=== PATIENT | male | born 1990 | race Two or more races ===

== ENCOUNTER 2021-02-28 10:58 | Emergency (ER) | payer OTHER ==
--- NOTE | 2021-02-28 12:14 | ER ---
Nurse's Notes [facility] Name: Jose G Robins Age: 31 yrs Sex: Male : 1990 Arrival Date: 02/28/2021 Time: 11:01 Bed 28 Private MD: Diagnosis: Puncture wound with foreign body of left middle finger without damage to nail, initial encounter-[place] Presentation: 02/28 11:55 Chief complaint: Patient states: About an hour ago pt got fish hook stuck in Left vg1 middle finger. No bleeding noted. Coronavirus screen: Vaccine status: Patient reports receiving the 2nd dose of the covid vaccine. Ebola Screen: Patient negative for fever greater than or equal to 101.5 degrees Fahrenheit, and additional compatible Ebola Virus Disease symptoms. Initial Sepsis Screen: Does the patient meet any 2 criteria? No. Patient's initial sepsis screen is negative. Does the patient have a suspected source of infection? No. Patient's initial sepsis screen is negative. Risk Assessment: Do you want to hurt yourself or someone else? Patient reports no desire to harm self or others. Onset of symptoms was February 28, 2021. 11:55 Method Of Arrival: Ambulatory vg1 11:55 Acuity: MELANIE 4 vg1 Triage Assessment: 11:56 General: Appears in no apparent distress. comfortable, Behavior is calm, cooperative. vg1 Pain: Complains of pain in palmar aspect of distal phalanx of left middle finger Pain currently is 3 out of 10 on a pain scale. Historical: - Allergies: 11:56 No Known Allergies; vg1 - Home Meds: 11:56 None [Active]; vg1 - PMHx: 11:56 None; vg1 - Immunization history:: Adult Immunizations up to date, Client reports receiving the 2nd dose of the Covid vaccine. - Social history:: Smoking status: Patient denies any tobacco usage or history of. - Family history:: not pertinent. - Hospitalizations: : No recent hospitalization is reported. Screenin:57 Abuse screen: Denies threats or abuse. Nutritional screening: No deficits noted. vg1 Tuberculosis screening: No symptoms or risk factors identified. Fall Risk No fall in past 12 months (0 pts). No secondary diagnosis (0 pts). No IV (0 pts). Ambulatory Aid- None/Bed Rest/Nurse Assist (0 pts). Gait- Normal/Bed Rest/Wheelchair (0 pts) Mental Status- Oriented to own ability (0 pts). Total Kennedy Fall Scale indicates No Risk (0-24 pts). Assessment: 12:23 General: Appears in no apparent distress. comfortable, Behavior is calm, cooperative, tr6 appropriate for age. Pain: Complains of pain in left middle finger. Neuro: No deficits noted. Cardiovascular: No deficits noted. Respiratory: No deficits noted. GI: No deficits noted. : No deficits noted. EENT: No deficits noted. Derm: Wound noted fish hook to left middle finger. Musculoskeletal: No deficits noted. Injury Description: Puncture sustained to fish hook to left middle finger. 12:25 Reassessment: fish hook removed by MD Bertrand. tr6 Vital Signs: 11:55 BP 121 / 61; Pulse 56; Resp 16; Pulse Ox 99% ; Weight 68.95 kg; Height 5 ft. 7 in. vg1 (170.18 cm); Pain 3/10; 11:58 Temp 98.2(O); tr6 12:23 BP 116 / 75; Pulse 57; Resp 18; Pulse Ox 100% on R/A; tr6 11:55 Body Mass Index 23.81 (68.95 kg, 170.18 cm) vg1 ED Course: 11:01 Patient arrived in ED. rg4 11:18 Ki Bertrand MD is Attending Physician. rn 11:49 Jyoti Mota RN is Primary Nurse. tr6 11:56 Triage completed. vg1 11:56 Arm band placed on. vg1 11:57 Patient has correct armband on for positive identification. Bed in low position. Call vg1 light in reach. Side rails up X 1. Adult w/ patient. 11:59 removal of fish hook. Patient did not have IV access during this emergency room visit. tr6 Administered Medications: No medications were administered Outcome: 12:13 Discharge ordered by . rn 12:25 Discharged to home ambulatory. tr6 12:25 Condition: good 12:25 Discharge instructions given to patient, Instructed on discharge instructions, follow up and referral plans. no drinking with medication, medication usage, safety practices, Demonstrated understanding of instructions, follow-up care, medications, wound care, Prescriptions given X 1. 12:25 Patient left the ED. tr6 Signatures: Ki Bertrand MD MD rn Garcia, Rubi rg4 Kamryn Fernandez, RN RN vg1 Jyoti Mota, RN RN tr6
--- NOTE | 2021-02-28 12:14 | EDPHYS ---
Physician Documentation [facility] Name: Jose G Robins Age: 31 yrs Sex: Male : 1990 Arrival Date: 02/28/2021 Time: 11:01 Bed 28 Private MD: ED Physician Ki Bertrand HPI: 02/28 12:09 This 31 yrs old Male presents to ER via Ambulatory with complaints of Fish Hook rn In Hand. 12:09 The patient or guardian reports the patient has a suspected foreign body, Finger. The rn reported likely foreign body is a fishhook. Onset: The symptoms/episode began/occurred just prior to arrival. Current symptoms: foreign body sensation. The patient has not experienced similar symptoms in the past. The patient has not recently seen a physician. Patient reports was fishing and fishhook got stuck in left middle finger prior to arrival. No other complaints. Historical: - Allergies: 11:56 No Known Allergies; vg1 - Home Meds: 11:56 None [Active]; vg1 - PMHx: 11:56 None; vg1 - Immunization history:: Adult Immunizations up to date, Client reports receiving the 2nd dose of the Covid vaccine. - Social history:: Smoking status: Patient denies any tobacco usage or history of. - Family history:: not pertinent. - Hospitalizations: : No recent hospitalization is reported. ROS: 12:09 Constitutional: Negative for fever MS/Extremity: Positive fishhook stuck in left middle rn finger tip Skin: No erythema Exam: 12:09 Constitutional: This is a well developed, well nourished patient who is awake, alert, rn and in no acute distress. MS/ Extremity: Pulses equal, no cyanosis. Neurovascular intact. Full, normal range of motion. Single fishhook stuck in the pad left third finger tip. No erythema. No active bleeding. Vital Signs: 11:55 BP 121 / 61; Pulse 56; Resp 16; Pulse Ox 99% ; Weight 68.95 kg; Height 5 ft. 7 in. vg1 (170.18 cm); Pain 3/10; 11:58 Temp 98.2(O); tr6 12:23 BP 116 / 75; Pulse 57; Resp 18; Pulse Ox 100% on R/A; tr6 11:55 Body Mass Index 23.81 (68.95 kg, 170.18 cm) vg1 Procedures: 12:09 Foreign Body Removal: a fishhook, from the left palmar aspect of distal phalanx of left rn middle finger, by using a hemostat, needle, Dressinx4s were used to dress the wound, Band-Aid, The patient tolerated the removal well, 18-gauge needle and hemostats used to pull fishhook out of entrance wound. Patient numbed with lidocaine at site with 1 cc of lidocaine. Patient states numb prior to starting removal. [place] easily removed out of entrance wound using needle and hemostats. Tolerated well. Finger soaked in Betadine following procedure.. MDM: 11:49 Patient medically screened. rn 12:09 Data reviewed: vital signs, nurses notes, and as a result, I will discharge patient. rn Counseling: I had a detailed discussion with the patient and/or guardian regarding: the historical points, exam findings, and any diagnostic results supporting the discharge/admit diagnosis, the need for outpatient follow up, to return to the emergency department if symptoms worsen or persist or if there are any questions or concerns that arise at home. Response to treatment: the patient's symptoms have resolved after treatment, and as a result, I will discharge patient. Special discussion: I discussed with the patient/guardian in detail that at this point there is no indication for admission to the hospital. It is understood, however, that if the symptoms persist or worsen the patient needs to return immediately for re-evaluation. Administered Medications: No medications were administered Disposition Summary: 02/28/21 12:13 Discharge Ordered Location: Home rn Problem: new rn Symptoms: have improved rn Condition: Stable rn Diagnosis - Puncture wound with foreign body of left middle finger without damage to nail, rn initial encounter - [place] Followup: rn - With: Private Physician - When: As needed - Reason: Recheck today's complaints, Re-evaluation by your physician Discharge Instructions: - Discharge Summary Sheet rn - Puncture Wound rn Forms: - Medication Reconciliation Form rn - Thank You Letter rn - Antibiotic internet consultant - Prescription Opioid Use rn Prescriptions: - Doxycycline Monohydrate 100 mg Oral Tablet - take 1 tablet by ORAL route every 12 hours for 7 days; 14 tablet; Refills: 0, rn Product Selection Permitted Signatures: Ki Bertrand MD MD rn Garcia, Victoria, RN RN vg1
[2021-02-28] MEDS ORDERED: LIDOCAINE 2% MPF 5 ML VIAL ONE (12:21)
[2021-02-28 12:33] VITALS: TEMP 98.2
[2021-02-28 12:34] VITALS: BP 116/75; O2SAT 100
== END 2021-02-28 12:25 | disposition home or self-care (01) ==
LOC: ER 10:58
DX: S61.243A Puncture wound with foreign body of left middle finger without damage to nail, initial encounter (principal)
CPT/HCPCS: 99282